=== PATIENT | female | born 1940 | race Caucasian/White ===

== ENCOUNTER 2019-09-01 06:47 | Day surgery (SDC) | payer OTHER ==
[~2019-09-01] VITALS: Ht 162.6 cm; Wt 42.2 kg
[~2019-09-01 06:47] MED LIST: ALPRAZOLAM 0.0.25 M1 PO; REMERON15 M2 PO
[2019-09-01 07:30] VITALS: BP 133/65
--- NOTE | 2019-09-02 06:57 | O ---
[facility] [place] [address] OPERATIVE REPORT Name: FANTASMA OLIVARES Room #: 150-1 [facility].#: [id number] Admission: 09/01/19 Attend Phys: Mikal Crane MD Discharge: Date of : 38 Report #: [id number] THIS REPORT FOR: cc: BRET - No family physician/PCP BRET - No family physician/PCP Mikal Crane MD ~ CC: Erlin Horne MD [facility] physician/PCP Gamaliel Crane DATE OF SERVICE: 09/01/2019 PREOPERATIVE DIAGNOSIS: Right upper canaliculitis with nasolacrimal duct obstruction. POSTOPERATIVE DIAGNOSIS: Right upper canaliculitis with nasolacrimal duct obstruction. PROCEDURE: Removal of the right upper lid canaliculoliths with endoscopic balloon dacryocystoplasty with silicone intubation. SURGEON: Mikal Crane MD. PHOTO INTERN: None. ANESTHESIA: General. COMPLICATIONS: None. 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 She presents today for recanalization of her right upper outflow tear tract along with removal of the obstruction and silicone intubation. Informed consent was obtained to include but not limited to the potential risk for loss of vision, bleeding, infection, failure to improve the problem, and the potential need for further surgery or treatment. She also understands that occasionally the treatment is unsuccessful and needs to be repeated. DESCRIPTION OF PROCEDURE: The patient was taken to the operating room where general anesthesia was administered. The patient received intravenous antibiotics at the beginning of the case. The right upper lid and the right lateral wall of the nose were then generously infiltrated with Xylocaine with epinephrine mixed with Marcaine and Wydase. The patient was subsequently prepped and draped in the usual sterile fashion. [address] [address] OPERATIVE REPORT Name: FANTASMA OLIVARES Jackie Room #: 150-1 [facility]#: [id number] Admission: 09/01/19 Attend Phys: Mikal Crane MD Discharge: Date of : 38 Report #: [id number] The right upper lid was then everted and moistened Q-tips were then used to retrograde expressed granular material and pus out of the right upper canaliculus. The initial pus that came out was used for culture. The granular material that followed was sent for pathologic analysis presuming it is Actinomyces israelii. A copious quantity of material was removed. The superior and inferior puncta were then dilated. A size 2 Sue probe was passed through the superior canalicular system down the stenosed nasolacrimal duct. The tract appeared to be more anteriorly located on her nose than what one would have expected and could have been one of the precipitating anatomic factors that she has for this condition. The cottonoids were removed from the nose and the nose was visualized with the video endoscope. The Sue probe could be seen entering the nose under the inferior turbinate. The Sue probe was removed and a 3 x 15 mm lacricatheter was then lubricated with erythromycin ophthalmic ointment passed through the same tract where it was visualized in the nose with the video endoscope. The balloon was then inflated to 9 atmospheres for 90 seconds at each of 3 locations for two cycles. The balloon was then vigorously aspirated as it was withdrawn. The tract was then irrigated with saline. A Mccallum tube was then passed through the superior canalicular system down into the nasolacrimal duct where it was retrieved with Mccallum hook. Once again the tract was displaced anteriorly on the nose from normal. The inferior system was similarly cannulated. The Mccallum tubes were secured to themselves with 3 square throws and subsequently to the lateral wall of the nose with one 5-0 Prolene suture. The wounds were then cleaned and the Betadine taken off of her face. Maxitrol drops were placed on the eye followed by erythromycin ointment. The patient was subsequently transported to the recovery area having tolerated the procedures well with no anesthetic or operative complications being noted. <ELECTRONICALLY SIGNED> By: Mikal Crane MD 09/02/19 [id number] Mikal Crane MD /nt
--- NOTE | 2019-09-02 17:07 | PATH ---
[facility] [address] [place] [address] PATHOLOGY RPT PROCEDURE Name: CELIA HOLM Room #: [facility].#: [id number] Admission: 09/01/19 Date of : 38 Discharge: 09/01/19 Report #: [id number] Path Case #: [id number] [facility] Accession Number: [id number] . 01 Material submitted: . eye - RIGHT UPPER CANALICULAR CONTENT. Modifiers: right, upper . 01 Clinical history: . Canaliculitis with nasolacrimal . 02 Diagnosis: Right upper canalicular content: - Marked acute inflammation along with abundant actinomyces species. (IUV:[place]; 09/02/2019) QMS 09/02/2019 1425 Local . 02 Electronically signed: . Earline Koenig MD, Pathologist NPI- [id number] . 01 Gross description: . The specimen is received in formalin, labeled "Celia Holm, right upper canalicular content" and consists of a friable segment of pink-chao tissue measuring 0.5 x 0.3 x 0.3 cm. It is entirely submitted in A1. (CHARLES; 09/01/2019) JFQ/JFQ 09/02/2019 1424 Local . 02 Pathologist provided ICD-10: H01.9 . 02 CPT . 804146 Specimen Comment: A courtesy copy of this report has been sent to [phone] Specimen Comment: Report sent to Performed at: [address], [place] [id number] MD Ruben Varner MD Phone: [phone] Performed at: [address] [id number] MD Earline Koenig MD Phone: [phone]
== END 2019-09-01 09:10 | disposition home or self-care (01) ==
LOC: OR 06:47 → TBA 07:54 → OR 09:04
DX: H04.331 Acute lacrimal canaliculitis of right lacrimal passage (principal); H04.551 Acquired stenosis of right nasolacrimal duct; H01.9 Unspecified inflammation of eyelid; A42.9 Actinomycosis, unspecified; Z98.890 Other specified postprocedural states; Z90.49 Acquired absence of other specified parts of digestive tract; Z90.710 Acquired absence of both cervix and uterus; Z98.41 Cataract extraction status, right eye; Z85.820 Personal history of malignant melanoma of skin
CPT/HCPCS: 50010; 50101; 50386; 50398; 51777; 55343; 56528; 62110; 62900; 70005